=== PATIENT | male | born 1960 | race Caucasian/White ===

== ENCOUNTER 2020-04-02 11:59 | Emergency (ER) | payer OTHER, SELFPAY ==
[2020-04-02 12:10] VITALS: BP 132/81; PULSE 78; RESP 16; TEMP 37; O2SAT 98; BMI 27.2
--- NOTE | 2020-04-02 13:15 | ED.BACK ---
HPI - Back Pain/Injury General Chief Complaint: Back Pain/Injury Stated Complaint: back pain Time Seen by Provider: 04/02/20 13:15 History of Present Illness HPI Narrative: patient complains of pain in his lower back radiating down his left leg that is similar to pain he has had for a long time he has had recent steroid shots he has had previous back surgeries and this is an ongoing issue, there is no new injury no incontinence no new weakness, no changes to bowel or bladder Related Data Previous Rx's Medication Instructions Recorded cyclobenzaprine 10 mg PO TID PRN #10 tab 04/02/20 oxycodone-acetaminophen [Percocet] 1 tab PO Q6H PRN #14 tab 04/02/20 Allergies Allergy/AdvReac Type Severity Reaction Status Date / Time No Known Drug Allergies Allergy Unknown UNKNOWN Verified 04/02/20 12:17 Review of Systems Review of Systems: there is no weakness, no incontinence, there are paresthesias down the left leg, there is no chest pain no abdominal pain no nausea no vomiting no fever no chills no urinary complaints PMFSH Past Medical History Source: nursing notes reviewed Medical History (Updated 04/02/20 @ 13:24 by KINA Arshad) Back pain Back pain due to injury Social History Social History Alcohol intake: unknown Smoking Status: Unknown if ever smoked Use of substances other than those prescribed or required for medical reasons: Unknown Advance Directives: No Advance Directives Information Provided: No Physical Exam Vital Signs and I&O and Narrative: Vital Signs and I&O: Vital Signs Temp 98.6 F 04/02/20 12:10 Pulse 78 04/02/20 12:10 Resp 16 04/02/20 12:10 BP 132/81 04/02/20 12:10 Pulse Ox 98 04/02/20 12:10 Intake & Output 04/01/20 04/02/20 04/02/20 18:59 06:59 18:59 Weight 81.193 kg Body Mass Index 27.2 general appearance no acute distress, A&O x3 The neck is supple nontender respiratory there is no respiratory distress abdomen is soft and nontender the back had bilateral lower lumbar paraspinal soft tissue tenderness worse on the left side there is no bony tenderness, the skin is normal there is no redness no warmth no wounds Extremities no calf tenderness no edema Neuro and O x3 no motor deficits Discharge Plan Discharge Clinical Impression: Lumbar radiculopathy Patient Disposition: Home, Self-Care Additional Instructions: follow with primary physician and back specialist Return any time any worse condition or any concerns Prescriptions: New oxycodone-acetaminophen [Percocet] 5-325 mg tablet 1 tab PO Q6H PRN (Reason: pain) Qty: 14 RF: 0 cyclobenzaprine 10 mg tablet 10 mg PO TID PRN (Reason: muscle spasm) Qty: 10 RF: 0 Interventions: ED Discharge Assessment Last Done: 04/02/20 13:40 Discharge Date/Time: 04/02/20 13:41
== END 2020-04-02 13:41 | disposition home or self-care (01) ==
PROVIDERS: Emergency Provider Emergency Medicine; PCP Internal Medicine
DX: M54.16 Radiculopathy, lumbar region (principal)
CPT/HCPCS: 99283; 99284

== ENCOUNTER 2020-05-09 13:05 | Emergency (ER) | payer OTHER, SELFPAY ==
--- NOTE | 2020-05-09 14:28 | ED_ITS ---
HPI - Back Pain/Injury General Chief Complaint: Back Pain/Injury Stated Complaint: back pain Time Seen by Provider: 05/09/20 14:21 Source: patient Mode of arrival: ambulatory Limitations: no limitations History of Present Illness HPI Narrative: 60-year-old male here with acute on chronic low back pain. The patient tells me he has had this pain for months. The secondary to work injury. The pain is unrelieved with a recent steroid taper, Motrin, Tylenol and Flexeril at home. The pain radiates both of his legs. He has numbness and tingling which is secondary to neuropathy and is unchanged from previous. He takes gabapentin for this. No saddle anesthesia. No numbness or tingling. The patient is ambulatory with his cane. He is waiting for approval for an MRI. MD elicited complaint: back pain Pertinent past history: prior back pain Onset (ago): month(s) Timing: constant Severity: mild Similar Symptoms Previously: No Location: lumbar spine Radiation: none Exacerbating factors: none Relieving factors: none Associated symptoms: denies other symptoms Work related injury: Yes Related Data Previous Rx's Medication Instructions Recorded cyclobenzaprine 10 mg PO TID PRN #10 tab 04/02/20 oxycodone-acetaminophen [Percocet] 1 tab PO Q6H PRN #14 tab 04/02/20 lidocaine [Lidoderm] 1 patch TOPICAL DAILY #15 ea 05/09/20 tramadol 50 mg PO Q8H PRN #10 tab 05/09/20 Allergies Allergy/AdvReac Type Severity Reaction Status Date / Time No Known Drug Allergies Allergy Unknown UNKNOWN Verified 04/02/20 12:17 Review of Systems Review of Systems: Yes all other systems are reviewed and are negative Constitutional: Constitutional: Reports no additional constitutional complaints, Denies body ache(s), Denies chills, Denies fever(s), Denies head ache(s) and Denies weakness Eyes: Eyes: Reports no additional eye complaints and Denies change in vision ENT: Reports system reviewed and no additional complaints, except as documented, Reports dizziness, Denies headache(s), Denies nasal congestion, Denies nasal discharge and Denies neck pain Cardiovascular: Cardiovascular: Reports no additional cardiovascular complaints, Denies chest pain, Denies leg edema and Denies dyspnea Respiratory: Respiratory: Reports no additional respiratory complaints, Denies cough and Denies dyspnea Gastrointestinal: Gastrointestinal: Reports no additional gastrointestinal complaints, Denies abdominal pain, Denies diarrhea, Denies nausea and Denies vomiting Genitourinary: Genitourinary: Denies urinary incontinence Musculoskeletal: Musculoskeletal: Reports no additional musculoskeletal complaints, Denies back pain, Denies arthralgias, Denies joint swelling, Denies neck pain, Denies numbness and Denies tingling Integumentary/Breasts: Skin/Breast: Reports system reviewed and no additional complaints, except as docu and Denies rash Neurologic: Reports system reviewed and no additional complaints, except as documented, Denies Abnormal speech present, Reports dizziness, Denies headache(s), Denies numbness, Denies tingling and Denies weakness PMFSH Past Medical History Attestation statement: The following information was validated with the patient. Source: obtained from family and nursing notes reviewed Medical History Back pain Back pain due to injury Social History Social History Alcohol intake: current Smoking Status: Current every day smoker Use of substances other than those prescribed or required for medical reasons: Yes Substance Use Type: Heroin Advance Directives: No Advance Directives Information Provided: Yes Physical Exam Vital Signs: Vital Signs: Last Vital Signs Temp 98.0 F 05/09/20 14:31 Pulse 81 05/09/20 15:38 Resp 98 H 05/09/20 15:38 BP 127/85 05/09/20 15:38 Pulse Ox 98 05/09/20 15:38 Body Mass Index 26.6 Const: General: cooperative, healthy appearing, comfortable and no acute distress Orientation/consciousness: patient oriented x3 Limitations: no limitations HENMT: Head: Yes normal to inspection Ears: hearing grossly normal bilaterally General nose exam: Normal external nose present Face and sinus: Yes normal facial exam Mouth: Normal oral and palatal mucosa present Throat: Yes posterior oropharynx normal Eyes: General: appearance normal, both eyes and all related structures Pupils: Equal, round and reactive pupils present Neck: Neck: Yes normal visual inspection Chest: Chest palpation & inspection: normal inspection of the chest Resp: Effort & Inspection: normal respiratory effort Auscultation: clear to auscultation bilaterally Cardio: Rate: regular rate Rhythm: regular rhythm Peripheral pulses: Peripheral pulses 2+ throughout GI: Inspection: Yes normal to inspection Palpation (GI): Soft to palpation and nontender Auscultation: normal bowel sounds : General: Yes no CVA tenderness Back/Spine/Pelvis: Back: no CVA tenderness Cervical Spine: normal cervical lordosis and cervical ROM normal Thoracic/Lumbar Spine: thoracic and lumbar spine normal to inspection, paraspinal muscle tenderness ( bilateral lumbar), lumbar spinal tenderness ( moderate tenderness. No step-offs or deformities) and straight leg raise positive ( Bilateral) Skin: General skin exam: no rashes or lesions noted Neuro: General: patient oriented x3, no focal motor deficits and normal sensation to monofilament Cranial nerves: Yes Equal, round and reactive pupils present Cognition (Neuro): normal cognition Speech: No Abnormal speech present Gait exam (Neuro): Normal gait present Motor exam (neuro): 5/5 motor strength present throughout Extrem: General: Yes normal to inspection Course Course Course Narrative: Back pain unrelieved with home meds. No neuro deficits. No red flag symptoms. Patient was medicated with Toradol in the ED with some improvement. Plan for discharge home with additional medications. Follow up with his primary and occupational health doctor for MRI outpatient. Reviewed worrisome signs and symptoms and when to return to the emergency department. Comfortable discharge home. Discharge Plan Discharge Clinical Impression: Strain of lumbar region Patient Disposition: Home, Self-Care Instructions: Low Back Strain (ED) Additional Instructions: heat or ice to the area Gentle stretching Continue to follow-up with her doctor as he likely will need outpatient MRI. Continue your Flexeril, Motrin, Tylenol at home Prescriptions: New lidocaine [Lidoderm] 5 % adhesive patch,medicated 1 patch topical DAILY Qty: 15 RF: 0 tramadol 50 mg tablet 50 mg PO Q8H PRN (Reason: pain) Qty: 10 RF: 0 No Action oxycodone-acetaminophen [Percocet] 5-325 mg tablet 1 tab PO Q6H PRN (Reason: pain) Qty: 14 RF: 0 cyclobenzaprine 10 mg tablet 10 mg PO TID PRN (Reason: muscle spasm) Qty: 10 RF: 0 Referrals: Cuong Barnes MD [Primary Care Provider] - 2 days Interventions: ED Discharge Assessment Last Done: 05/09/20 15:39 Discharge Date/Time: 05/09/20 15:40
[2020-05-09 14:31] VITALS: BP 114/80; PULSE 85; RESP 18; TEMP 36.7; O2SAT 97; BMI 26.6
[2020-05-09] MEDS: Ketorolac Tromethamine 60 MG/2 ML VIAL IM (14:43)
--- NOTE | 2020-05-09 14:44 | PC.NURSE ---
MEDICATED FOR LOWER BACK PAIN. PT [facility]. USING CANE WHICH IS BASELINE.
[2020-05-09 15:38] VITALS: BP 127/85; PULSE 81; RESP 98; O2SAT 98
== END 2020-05-09 15:40 | disposition home or self-care (01) ==
PROVIDERS: Emergency Provider Emergency Medicine; PCP Internal Medicine
DX: S39.012A Strain of muscle, fascia and tendon of lower back, initial encounter (principal); M79.605 Pain in left leg; M79.604 Pain in right leg; F17.200 Nicotine dependence, unspecified, uncomplicated; F11.90 Opioid use, unspecified, uncomplicated; X58.XXXA Exposure to other specified factors, initial encounter; Y93.9 Activity, unspecified; Y92.9 Unspecified place or not applicable; Y99.9 Unspecified external cause status; Z79.899 Other long term (current) drug therapy; Z71.6 Tobacco abuse counseling
CPT/HCPCS: 96372; 99283; 99284; J1885

== ENCOUNTER 2020-05-30 13:50 | Outpatient (REF) | payer OTHER, SELFPAY | END 2020-05-30 13:51 | disposition home or self-care (01) | LOC: HO.LAB 13:50 | PROVIDERS: Visit Provider Internal Medicine | DX: Z20.828 Contact with and (suspected) exposure to other viral communicable diseases (principal) | CPT/HCPCS: C9803; U0003 ==

== ENCOUNTER 2020-10-19 14:21 | Emergency (ER) | payer OTHER, SELFPAY ==
--- NOTE | ~2020-10-19 | XR_ITS ---
EXAMINATION: XR KNEE, LEFT CLINICAL INFORMATION: Left knee pain COMPARISON: None TECHNIQUE: Four views of the left knee. FINDINGS: No fracture or dislocation. There is a moderate to large suprapatellar joint effusion. Moderately decreased medial joint space height. Lateral joint space height is relatively maintained. Tricompartmental marginal osteophytes noted. Stenosis appreciated. XR/XR knee LT 4V IMPRESSION: Moderate to large joint effusion with moderate diffuse degenerative changes of the knee.
[2020-10-19 14:26] VITALS: BP 160/85; PULSE 87; RESP 18; TEMP 36.8; O2SAT 97; BMI 27.3
[2020-10-19 16:34] VITALS: BP 183/94; PULSE 77; RESP 18; O2SAT 97
[2020-10-19] MEDS: Ketorolac Tromethamine 60 MG/2 ML VIAL IM (16:57)
--- NOTE | 2020-10-19 17:51 | ED_ITS ---
HPI - Extremity Injury (Lower) General Chief Complaint: Extremity Injury, Lower Stated Complaint: left knee pain Source: patient Mode of arrival: ambulatory Limitations: no limitations History of Present Illness HPI Narrative: Patient presents to ED for left knee pain. Patient states history of left knee meniscus 20 years ago. Patient states yesterday he was stepping out of his car and he put his foot down and turned his left knee and all the signing heard a pop in his left knee since then has had pain. Patient denies any blunt trauma to the knee, redness, fever, chills, or fall to the ground. Related Data Previous Rx's Medication Instructions Recorded cyclobenzaprine 10 mg PO TID PRN #10 tab 04/02/20 oxycodone-acetaminophen [Percocet] 1 tab PO Q6H PRN #14 tab 04/02/20 lidocaine [Lidoderm] 1 patch TOPICAL DAILY #15 ea 05/09/20 tramadol 50 mg PO Q8H PRN #10 tab 05/09/20 naproxen 500 mg PO BID PRN #20 tab 10/19/20 oxycodone-acetaminophen [Percocet] 1 tab PO TID PRN #9 tab 10/19/20 Allergies Allergy/AdvReac Type Severity Reaction Status Date / Time No Known Drug Allergies Allergy Unknown UNKNOWN Verified 04/02/20 12:17 Review of Systems Review of Systems: Yes all other systems are reviewed and are negative Constitutional: Constitutional: Reports as per HPI and Reports no additional c onstitutional complaints Eyes: Eyes: Reports as per HPI and Reports no additional eye complaints ENT: Reports system reviewed and no additional complaints, except as documented and Reports as per HPI Cardiovascular: Cardiovascular: Reports as per HPI and Reports no additional cardiovascular complaints Respiratory: Respiratory: Reports as per HPI and Reports no additional respiratory complaints Gastrointestinal: Gastrointestinal: Reports as per HPI and Reports no additional gastrointestinal complaints Genitourinary: Genitourinary: Reports no additional male genitourinary complaints and Reports as per HPI Musculoskeletal: Musculoskeletal: Reports no additional musculoskeletal complaints, Reports as per HPI and Reports arthralgias (Knee pain) Neurologic: Reports system reviewed and no additional complaints, except as documented and Reports as per HPI PMFSH Past Medical History Medical History Back pain Back pain due to injury Social History Social History Alcohol intake: current Smoking Status: Current every day smoker Substance Use Type: Heroin Advance Directives: No Advance Directives Information Provided: Yes Physical Exam Vital Signs: Vital Signs: Last Vital Signs Temp 98.2 F 10/19/20 14:26 Pulse 77 10/19/20 16:34 Resp 18 10/19/20 16:34 BP 183/94 H 10/19/20 16:34 Pulse Ox 97 10/19/20 16:34 Body Mass Index 27.3 Const: General: cooperative, healthy appearing, comfortable, no acute distress, well developed, alert, awake and Physically active Orientation/consciousness: patient oriented x3 HENMT: Head: Yes normal to inspection, Yes No palpable skull fracture present, Yes normocephalic and Yes atraumatic Eyes: General: appearance normal, both eyes and all related structures Neck: Neck: Yes normal visual inspection, Yes full ROM, Yes no lymphadenopathy, Yes no meningeal signs, Yes trachea midline, Yes supple and No tender Chest: Chest palpation & inspection: normal inspection of the chest and normal palpation of entire chest wall Resp: Effort & Inspection: normal respiratory effort and able to speak in complete sentences Auscultation: clear to auscultation bilaterally Cardio: Jugular venous distension: no JVD Heart sounds: S1 normal heart sound present and S2 normal heart sound present GI: Inspection: Yes normal to inspection and No abdominal wall ecchymosis Palpation (GI): Soft to palpation, not firm, nontender, no guarding and not rigid : General: No CVA tenderness and Yes no CVA tenderness Back/Spine/Pelvis: Back: no CVA tenderness, No CVA tenderness and No back tenderness Skin: General skin exam: no rashes or lesions noted and elasticity normal Neuro: General: patient oriented x3, gait normal (Ambulate with can naturally), no meningeal signs and CN's II-XI intact bilaterally Cranial nerves: Yes CN's II-XII intact bilaterally Extrem: Other: Left lower extremity: Positive for left knee medial meniscus tenderness on palpation. Swelling of the knee, but negative for any erythema or warmth of the knee. Rest of left lower extremity negative for swelling, tenderness, or ecchymosis. Pulses/neuro/motor exam of left lower extremity intact. Rest of body normal. General: Yes normal to inspection and Yes full ROM Psych: Appearance: grossly normal, well kempt and not disheveled Course Course Course Narrative: Patient will have left knee xray ordered. Reevaluation(s) Reevaluation #1: Left knee shows joint effusion most likely caused by another meniscus tear. No need for arthrocentesis. Knee is not warm or red. Not suspecting gout or septic joint. Patient be placed in Con wrap and informed to follow-up with orthopedics. Patient will be given narcotic before discharge MDM - Extremity Injury (Lower) MDM Narrative Medical decision making narrative: Left knee sprain. Left knee effusion. Meniscus tear. Discharge Plan Discharge Clinical Impression: Knee sprain Patient Disposition: Home, Self-Care Instructions: Knee Sprain (ED), Osteoarthritis (ED), Swollen Knee Joint (ED) Additional Instructions: Return to the ED for worsening knee pain, increased swelling of knee, redness, warmth, inability to ambulate, inability to bend knee, or any other concerning symptoms. Recommended repeat MRI with PCP or orthopedic to evaluate for possible new left meniscus tear. Prescriptions: New oxycodone-acetaminophen [Percocet] 5-325 mg tablet 1 tab PO TID PRN (Reason: pain) Qty: 9 RF: 0 naproxen 500 mg tablet 500 mg PO BID PRN (Reason: pain) Qty: 20 RF: 0 No Action oxycodone-acetaminophen [Percocet] 5-325 mg tablet 1 tab PO Q6H PRN (Reason: pain) Qty: 14 RF: 0 cyclobenzaprine 10 mg tablet 10 mg PO TID PRN (Reason: muscle spasm) Qty: 10 RF: 0 lidocaine [Lidoderm] 5 % adhesive patch,medicated 1 patch topical DAILY Qty: 15 RF: 0 tramadol 50 mg tablet 50 mg PO Q8H PRN (Reason: pain) Qty: 10 RF: 0 Referrals: Cuong Barnes MD [Primary Care Provider] - 2 days (Need MRI for evaluation of meniscus tear.) Sotero Norris MD [Physician] - 2 days (Knee effusion after turning of knee. History of meniscus tear. May need MRI to re-evaluate for possible new meniscus tear.) Print Language: Beninese
[2020-10-19] MEDS: oxyCODONE HCl Immed Release 5 MG TABLET PO (18:04)
== END 2020-10-19 19:00 | disposition home or self-care (01) ==
PROVIDERS: Emergency Provider Internal Medicine; PCP Internal Medicine
DX: S83.92XA Sprain of unspecified site of left knee, initial encounter (principal); M25.562 Pain in left knee; M17.12 Unilateral primary osteoarthritis, left knee; F11.90 Opioid use, unspecified, uncomplicated; X58.XXXA Exposure to other specified factors, initial encounter; Y93.9 Activity, unspecified; Y92.9 Unspecified place or not applicable; Y99.9 Unspecified external cause status; Z79.899 Other long term (current) drug therapy
CPT/HCPCS: 73564; 96372; 99284; J1885

== ENCOUNTER → 2020-10-24 11:31 | Outpatient (BNVA) | payer OTHER, SELFPAY | PROVIDERS: PCP Internal Medicine; Visit Provider Physician Assistant | DX: M17.12 Unilateral primary osteoarthritis, left knee (principal); M25.462 Effusion, left knee | CPT/HCPCS: 20605; 20610; 99202; J1040 ==

== ENCOUNTER 2020-12-22 14:00 | Outpatient (RCR) | payer OTHER, SELFPAY ==
[2020-11-04 14:44] VITALS: BP 130/80
--- NOTE | 2020-11-04 15:42 | MHC.PT.EP ---
[facility] [place] [facility] [place] Office [place] Office [address] Lizzie [place] [address] [phone] F: [phone] F: [phone] F: [phone] F: [phone] Physical Therapy Plan of Care Date of Evaluation: Date of Surgery: NA Diagnosis: OA of L knee, Effusion of L knee, unilateral primary OA of L knee Assessment: 60 year old male referred for PT for unilateral primary OA of L knee . Pt had sudden onset of knee pain about 2 weeks back following a twisting injury while getting out of the car. Examination reveals TTP along medial and lateral joint line, around patella, 8/10 pain in the knee with standing, walking, stairs, fabrication and assembly supervisor and night, decreased knee ROM, swelling in suprapatellar region, decreased muscle strength, altered posture, balance and gait. He would benefit from skilled PT to address to aforementioned impairments to increase tolerance to sitting, standing, walking, stairs, sleeping and ADLS. He is motivated to return to PLOF. Frequency and Duration: The patient will be seen 2/week for 6 weeks Short Term Goals: 1. Pt will have 50% decrease in pain which will enable him to sleep through the night in 2 weeks. 2. Pt will be able to move knee through full plane of motion without pain which will help him with stair negotiation in 3 weeks. Half-Way Goals: 1. Pt will demonstrate an increase in muscle strength by 1 grade in which will enable him to walk and stand with a pain no more than 2/10 in 4 weeks 2. Pt will be independent with all HEPs for symptom management and maintenance following d/c in 5 weeks. 3. Pt will be independent with all BADLS and return to PLOF in 6 weeks. Treatment Plan: Modalities to reduce pain, spasms and effusion. Manual therapy to restore motion and function. Therapeutic exercise to improve strength and flexibility. Neuromuscular re-education for posture and balance. Therapeutic activities to return to functional activities of daily living. Electronically signed by: Araseli Ledezma, PT, DPT Please sign and return to therapist. Thank you for your referral.
--- NOTE | 2021-01-20 14:41 | MHC.PT.DC ---
[facility] [place] [facility] [place] Office [place] Office [address] [phone] F: [phone] F: [phone] F: [phone] F: [phone] Physical Therapy Discharge Report Diagnosis: OA of L knee, Effusion of L knee, unilateral primary OA of L knee Date of Surgery: NA Date of Evaluation: 11/04/20 Date of Discharge: 01/20/21 Treatments to Date: 11 Cancellations to Date: 1 No Shows to Date: 1 Discharge Status: Achieved Goals Improved Function Independent with HEP Discharge Summary: Olivier has made significant improvements and achieved all goals set for him. He has therefore been d/c from therapy. Electronically signed by: Araseli Ledezma PT DPT Please sign and return to therapist. Thank you for your referral.
== END 2021-01-20 14:40 | disposition home or self-care (01) ==
LOC: HO.PT 14:00
PROVIDERS: PCP Internal Medicine; Visit Provider Physician Assistant
DX: M25.462 Effusion, left knee (principal); M17.12 Unilateral primary osteoarthritis, left knee
CPT/HCPCS: 97110; 97112; 97161; 97530

== ENCOUNTER 2021-12-07 15:43 | Emergency (ER) | payer OTHER, SELFPAY ==
[2021-12-07 15:52] VITALS: BP 146/83; PULSE 98; RESP 18; TEMP 36.6; O2SAT 98; BMI 24.3
--- NOTE | 2021-12-07 16:52 | ED_ITS ---
HPI - Back Pain/Injury General Chief Complaint: Back Pain/Injury Stated Complaint: lower back pain Time Seen by Provider: 12/07/21 16:49 Source: patient Mode of arrival: ambulatory Limitations: no limitations History of Present Illness HPI Narrative: 61-year-old male presents for acute on chronic back pain. Pain started yesterday, when he sneezed hard. It is worse today and is severe. It is more on his right side than left, mid back, stabbing pain. Pain radiates down his legs, right side more than left . He took meloxicam 15 mg at 09:00 this morning. Patient states he had an MRI one month ago at another facility that showed he has a herniated disc in his lumbar spine Patient had a back injury from work in 2019. He has L4-L5 fusion with hardware. He used to see Dr. Chopra at [facility] for his spine doctor. He has also has a history of steroid injections in his spine. No fevers, no history of IV drug use, no leg weakness, no saddle paresthesias, no urinary retention, no incontinence of bowel or bladder, no personal history of cancer MD elicited complaint: back pain Pertinent past history: prior back pain Onset (ago): day(s) (1) Timing: constant Severity: severe Similar Symptoms Previously: Yes Quality: stabbing Location: lumbar spine Radiation: right upper leg Exacerbating factors: movement Relieving factors: none Context: other ( CC) Associated symptoms: denies other symptoms Related Data Previous Rx's Medication Instructions Recorded cyclobenzaprine 10 mg tablet 10 mg PO TID PRN muscle spasm #10 04/02/20 tabs oxycodone-acetaminophen 5 mg-325 1 tab PO Q6H PRN pain #14 tabs 04/02/20 mg tablet (Percocet) lidocaine 5 % topical patch 1 patch topical DAILY #15 ea 05/09/20 (Lidoderm) tramadol 50 mg tablet 50 mg PO Q8H PRN pain #10 tabs 05/09/20 naproxen 500 mg tablet 500 mg PO BID PRN pain #20 tabs 10/19/20 oxycodone-acetaminophen 5 mg-325 1 tab PO TID PRN pain #9 tabs 10/19/20 mg tablet (Percocet) celecoxib 200 mg capsule (Celebrex) 200 mg PO BID 30 days #60 caps 10/24/20 cyclobenzaprine 5 mg tablet 5 mg PO TID 5 days #15 tabs 12/07/21 ketorolac 10 mg tablet 10 mg PO Q6H 5 days #20 tabs 12/07/21 Allergies Allergy/AdvReac Type Severity Reaction Status Date / Time No Known Drug Allergies Allergy Unknown UNKNOWN Verified 04/02/20 12:17 Review of Systems Constitutional: Constitutional: Denies body ache(s), Denies chills, Denies fatigue, Denies fever(s), Denies headache(s), Denies malaise and Denies weakness Eyes: Eyes: Denies diplopia ENT: Denies headache(s) and Denies disequilibrium Cardiovascular: Cardiovascular: Denies chest pain, Denies syncope, Denies leg edema, Denies lightheadedness, Denies Loss of Consciousness, Denies palpitations and Denies dyspnea Respiratory: Respiratory: Denies chest congestion, Denies cough and Denies dyspnea Gastrointestinal: Gastrointestinal: Denies abdominal pain, Denies hematochezia, Denies constipation, Denies fecal incontinence, Denies diarrhea and Denies vomiting Genitourinary: Genitourinary: Denies urinary hesitancy and Denies urinary incontinence Musculoskeletal: Musculoskeletal: Reports back pain, Denies numbness and Denies tingling Integumentary/Breasts: Skin/Breast: Denies rash Neurologic: Denies confusion, Denies syncope, Denies headache(s), Denies lack of coordination, Denies focal weakness, Denies numbness, Denies Sensory deficit (Neuro), Denies tingling, Denies paresthesias, Denies disequilibrium and Denies weakness Psychiatric: Psychiatric: Denies anxiety, Denies confusion and Denies depression Endocrine: Endocrine: Denies fatigue and Denies palpitations PMF Past Medical History Medical History Back pain Back pain due to injury Surgical History History of lumbar surgery Hx of appendectomy Social History Social History Alcohol intake: current Substance Use Type: Heroin Advance Directives: No Advance Directives Information Provided: No Physical Exam Vital Signs: Vital Signs: Last Vital Signs Temp 98 F 12/07/21 15:52 Pulse 98 12/07/21 15:52 Resp 18 12/07/21 15:52 BP 146/83 H 12/07/21 15:52 Pulse Ox 98 12/07/21 15:52 O2 Del Method 12/07/21 15:52 BMI result Body Mass Index 24.3 Const: General: No confusion Nutritional Appearance: well nourished Orientation/consciousness: No confusion Limitations: no limitations Eyes: Conjunctivae: conjunctivae normal Pupils: Equal, round and reactive pupils present EOM: EOMs intact bilaterally Neck: Neck: Yes full ROM, Yes no lymphadenopathy and Yes supple Resp: Effort & Inspection: normal respiratory effort and able to speak in complete sentences Auscultation: clear to auscultation bilaterally, no crackles, no rales, no rhonchi and no wheezes Cardio: Rate: regular rate Rhythm: regular rhythm Heart sounds: S1 normal heart sound present and S2 normal heart sound present GI: Inspection: Yes normal to inspection Palpation (GI): Soft to palpation, nontender, no guarding and not rigid Percussion: Yes normal to percussion Auscultation: normal bowel sounds : General: Yes CVA tenderness and Yes no CVA tenderness Back/Spine/Pelvis: Back: no CVA tenderness and CVA tenderness Cervical Spine: normal cervical lordosis, cervical ROM normal, No cervical muscular tenderness, No Cervical spine tenderness, No step off deformity and No cervical ROM abnormal Thoracic/Lumbar Spine: paraspinal muscle tenderness on the right in the lower thoracic and in the upper lumbar, thoraco-lumbar ROM limited with forward flexion, with lateral flexion to the right, with lateral flexion to the left, with rotation to the right and with rotation to the left, thoraco-lumbar spasm on the right in the lower thoracic and in the upper lumbar, No thoracic spinal tenderness, No lumbar spinal tenderness and No straight leg raise positive Skin: General skin exam: no rashes or lesions noted Neuro: General: No confusion Cranial nerves: Yes Equal, round and reactive pupils present Sensory Exam: No Sensory deficit (Neuro) Extrem: General: Yes normal to inspection and Yes full ROM Psych: Appearance: grossly normal Affect: normal affect Attitude: cooperative Thought process: Normal thought process present Course Course Course Narrative: 7-year-old male with acute on chronic back pain for 1 day. No red flag symptoms, patient has stable vitals. Patient has bilateral negative straight leg raise, has intact bilateral lower extremity pulses, sensation, motor strength, and deep tendon reflexes. Patient has a stiff gait due to pain. Patient has a palpable muscle spasm in his lower thoracic upper lumbar right paraspinous muscle. Will treat with ketorolac and Flexeril. Patient states he does not like to have prednisone as he is diabetic and it makes her sugars go high. Patient states he has no more meloxicam, does have Celebrex at home, is prescribed naproxen but is not taking that now Discharge Plan Discharge Clinical Impression: Strain of lumbar region Patient Disposition: Home, Self-Care Instructions: Acute Low Back Pain (ED) Additional Instructions: please call [facility] at the following number [phone] I would like you to be seen for evaluation of your chronic back pain I am prescribing ketorolac to your pharmacy, please do not use any other medicine in this same class of medicines. In other words, do not use any ibuprofen, Celebrex, naproxen, meloxicam, Motrin, Aleve, Excedrin. Please only use ketorolac and the cyclobenzaprine if you have sudden leg weakness, if you are incontinent of bowel or bladder, if you cannot empty her bladder, if you have fevers, if you have numbness or tingling in your groin, please return to emergency room to be seen Prescriptions: New ketorolac 10 mg tablet 10 mg PO Q6H 5 Days Qty: 20 0RF cyclobenzaprine 5 mg tablet 5 mg PO TID 5 Days Qty: 15 0RF No Action oxycodone-acetaminophen [Percocet] 5-325 mg tablet 1 tab PO Q6H PRN (Reason: pain) Qty: 14 0RF cyclobenzaprine 10 mg tablet 10 mg PO TID PRN (Reason: muscle spasm) Qty: 10 0RF lidocaine [Lidoderm] 5 % adhesive patch,medicated 1 patch topical DAILY Qty: 15 0RF Rx Instructions: leave on most painful area for up to 12 hrs tramadol 50 mg tablet 50 mg PO Q8H PRN (Reason: pain) Qty: 10 0RF oxycodone-acetaminophen [Percocet] 5-325 mg tablet 1 tab PO TID PRN (Reason: pain) Qty: 9 0RF naproxen 500 mg tablet 500 mg PO BID PRN (Reason: pain) Qty: 20 0RF celecoxib [Celebrex] 200 mg capsule 200 mg PO BID 30 Days Qty: 60 0RF
[2021-12-07] MEDS: Ketorolac Tromethamine 15 MG/ML VIAL IM (18:04)
[2021-12-07] MEDS: Cyclobenzaprine HCl 10 MG TABLET PO (18:05)
[2021-12-07] MEDS: oxyCODONE HCl Immed Release 5 MG TABLET PO (18:05)
== END 2021-12-07 18:52 | disposition home or self-care (01) ==
PROVIDERS: Emergency Provider Emergency Medicine; PCP Internal Medicine
DX: S39.012A Strain of muscle, fascia and tendon of lower back, initial encounter (principal); X50.9XXA Other and unspecified overexertion or strenuous movements or postures, initial encounter; Y93.9 Activity, unspecified; Y92.019 Unspecified place in single-family (private) house as the place of occurrence of the external cause; Y99.9 Unspecified external cause status
CPT/HCPCS: 96372; 99283; 99284; J1885

== ENCOUNTER 2021-12-13 11:15 | Emergency (ER) | payer OTHER, SELFPAY ==
[2021-12-13 11:46] VITALS: BP 156/102; PULSE 93; RESP 18; TEMP 36.1; O2SAT 98; BMI 24.3
[2021-12-13 12:17] LABS: Basophils Percent Auto 0.3 % (0-2); Eosinophils Absolute Auto 0.2 X10*3/uL (0.0-0.4); Eosinophils Percent Auto 1.6 % (0-4); Hematocrit 34.1 % (42.0-52.0); Hemoglobin 11.4 g/dl (14.0-18.0); Imm Gran Abs Auto 0.05 X10*3/uL (0.00-0.03); Imm Gran Pct Auto 0.4 % (0.0-0.4); Lymphocytes Absolute Auto 1.7 X10*3/uL (1.2-4.9); Lymphocytes Percent Auto 13.3 % (20-40); MANUAL DIFF FLAG NO; Mean Corpuscular HGB Conc 33.4 g/dl (31.0-36.0); Mean Corpuscular Hemoglobin 29.7 pg (27.0-33.0); Mean Corpuscular Volume 88.8 fL (80.0-98.0); Mean Platelet Volume 9.6 fL (9.4-12.4); Monocytes Absolute Auto 0.7 X10*3/uL (0.1-1.2); Monocytes Percent Auto 5.7 % (2-11); Neutrophils Absolute Auto 10.1 x10*3/uL (2.0-8.3); Neutrophils Percent Auto 78.7 % (45-73); Platelet Count 280 X10*3/uL (160-400); Red Blood Count 3.84 X10*6/uL (4.60-5.80); Red Cell Distribution Width 13.7 % (11.0-16.0); White Blood Count 12.9 X10*3/uL (4.8-10.8)
[2021-12-13 12:18] LABS: Appearance Urine CLEAR; Color Urine YELLOW; Glucose Urine UA 100 MG/DL (NEG); Leukocyte Esterase Urine NEG (NEG); Nitrite Urine NEG (NEG); Specific Gravity - Urine 1.015 (1.005-1.025); UACC Culture Trigger NO; Urine Blood NEG (NEG); Urine Ketones NEG (NEG); Urine Protein 1+ MG/DL (NEG-TRACE)
[2021-12-13 12:24] LABS: RBC Urine 0-2 /HPF (0); Squamous Epithelial Cell Urine TRACE /LPF; WBC Urine 0-2 /HPF (0-4)
[2021-12-13 12:36] LABS: Alanine Aminotransferase 10 U/L (0-40); Albumin Level 4.6 g/dL (3.5-5.0); Alkaline Phosphatase 91 U/L (39-117); Anion Gap 13 (12-20); Aspartate Amino Transferase 12 U/L (5-37); Bilirubin Direct 0.2 mg/dL (0.0-0.5); Bilirubin Total 0.5 mg/dL (0.0-1.0); Blood Urea Nitrogen 14 mg/dL (9-16); Calcium 9.2 mg/dL (8.4-10.2); Carbon Dioxide 29 mmol/L (22-29); Chloride 102 mmol/L (96-108); Creatinine Clr Calc Pharmacy 79.1; Estimated Glomerular Filt Rate > 60; Glucose Random 157 mg/dL (60-115); Lipase 14 U/L (8-78); Potassium 3.9 mmol/L (3.3-5.1); Sodium 140 mmol/L (135-145); Total Protein 7.5 g/dL (6.5-8.0)
[2021-12-13 15:16] VITALS: BP 179/100; PULSE 85; RESP 18; TEMP 37.1; O2SAT 100
--- NOTE | 2021-12-13 15:48 | ED.ABDPAIN ---
HPI - Abdominal Pain General Chief Complaint: Abdominal Pain Stated Complaint: abd pain Time Seen by Provider: 12/13/21 15:23 Source: patient Mode of arrival: ambulatory Limitations: no limitations History of Present Illness HPI narrative: 61 y/o male presents to the ER with epigastric abdominal pain and chills that started yesterday. He states the pain started yesterday morning, is located in his epigastric area and stabbing. It does not radiate. It is worse when he tries to eat. He is not nausated or vomiting. No diarrhea, fever or chills. He states he was told he had an ulcer years ago and that this feels similar. He is on chronic meloxicam for his arthritis. No ETOH. No signs or symptoms of GI bleed. MD elicited complaint: abdominal pain Pertinent past history: none Onset (ago): day(s) (1) Location: epigastric Severity: moderate Pain scale (0-10): 6 Quality: stabbing Radiation: none Migration to: no migration Exacerbating factors: eating Relieving factors: nothing Context: history of similar episodes Associated symptoms: denies other symptoms Related Data Previous Rx's Medication Instructions Recorded cyclobenzaprine 10 mg tablet 10 mg PO TID PRN muscle spasm #10 04/02/20 tabs oxycodone-acetaminophen 5 mg-325 1 tab PO Q6H PRN pain #14 tabs 04/02/20 mg tablet (Percocet) lidocaine 5 % topical patch 1 patch topical DAILY #15 ea 05/09/20 (Lidoderm) tramadol 50 mg tablet 50 mg PO Q8H PRN pain #10 tabs 05/09/20 naproxen 500 mg tablet 500 mg PO BID PRN pain #20 tabs 10/19/20 oxycodone-acetaminophen 5 mg-325 1 tab PO TID PRN pain #9 tabs 10/19/20 mg tablet (Percocet) celecoxib 200 mg capsule (Celebrex) 200 mg PO BID 30 days #60 caps 10/24/20 cyclobenzaprine 5 mg tablet 5 mg PO TID 5 days #15 tabs 12/07/21 ketorolac 10 mg tablet 10 mg PO Q6H 5 days #20 tabs 12/07/21 pantoprazole 40 mg tablet,delayed 40 mg PO DAILY #30 tabs 12/13/21 release (Protonix) Allergies Allergy/AdvReac Type Severity Reaction Status Date / Time No Known Drug Allergies Allergy Unknown UNKNOWN Verified 04/02/20 12:17 Review of Systems Review of Systems Constitutional: No Fever, No Chills ENT/Mouth: No sore throat, No Rhinorrhea, No Swallowing Difficulty Cardiovascular: No Chest Pain, No SOB Respiratory: No Cough, No Sputum, No Wheezing, No dyspnea Gastrointestinal: No Nausea, No Vomiting, No Diarrhea, +abdominal Pain, No melena Genitourinary: No Dysuria, No Urinary Frequency, No Hematuria Musculoskeletal: No joint pain, No Myalgias Skin: No Skin Lesions, No rash Neuro: No Weakness, No Numbness, No Dizziness, No Headache Psych: No Anxiety/Panic, No Depression Heme/Lymph: No Bruising, No Lymphadenopathy PMFSH Past Medical History Medical History Back pain Back pain due to injury Surgical History History of lumbar surgery Hx of appendectomy Social History Social History Alcohol intake: current Alcohol intake frequency: does not drink Patient Tobacco Use Status: Current someday Tobacco user Smoked in Last 30 Days: Yes Use of substances other than those prescribed or required for medical reasons: No Substance Use Type: Heroin Advance Directives: No Advance Directives Information Provided: No Physical Exam ED Vital Signs: Vital Signs - 24 hr 12/13/21 11:46 12/13/21 15:16 12/13/21 15:59 Temperature 97 F 98.7 F 99.1 F Pulse Rate 93 85 89 Respiratory Rate 18 18 20 Blood Pressure 156/102 H 179/100 H 169/101 H Pulse Oximetry 98 100 100 Oxygen Delivery Method Room Air Room Air BMI result Body Mass Index 24.3 Appearance: Alert. Oriented X3. No acute distress. Eyes: Pupils equal, round and reactive to light. ENT: Pharynx normal. Neck: Normal inspection. Neck supple. CVS: Normal heart rate and rhythm. Pulses normal. Respiratory: No respiratory distress. Breath sounds normal. Abdomen: Soft with mild epigastric tenderness, no rebound or guarding. No RUQ tenderness, normal +BS x4 Skin: Skin warm and dry. Normal skin color. Normal skin turgor. No rashes. Extremities: No lower extremity edema. Neuro: Oriented X 3. No motor deficit. No sensory deficit. Course Course Course Narrative: 61 yo male with history of DM, HTN, osteoarthritis on NSAIDS who presents to the ER with epigastric pain since yesterday, worse with food. Labs show mild leukocytosis, WBC 12.9. LFT's and lipase are normal. Clinical presentation and exam are consistent with PUD vs gastritis. No melena or evidence of GI bleed. Will give GI cocktail and reassess. Reevaluation(s) Reevaluation #1: Patient feeling better after GI cocktail. Will plan to d/c with PPI, dietary modifications and GI referral if pain persists. Patient agrees with plan. MDM - Abdominal Pain Lab Data Result diagrams: 12/13/21 12:08 12/13/21 12:08 Labs: Lab Results 12/13/21 12/13/21 12/13/21 Range/Units 12:06 12:08 12:08 WBC 12.9 H (4.8-10.8) X10*3/uL RBC 3.84 L (4.60-5.80) X10*6/uL Hgb 11.4 L (14.0-18.0) g/dl Hct 34.1 L (42.0-52.0) % MCV 88.8 (80.0-98.0) fL MCH 29.7 (27.0-33.0) pg MCHC 33.4 (31.0-36.0) g/dl RDW 13.7 (11.0-16.0) % Plt Count 280 (160-400) X10*3/uL MPV 9.6 (9.4-12.4) fL Immature Gran % (Auto) 0.4 (0.0-0.4) % Neut % (Auto) 78.7 H (45-73) % Lymph % (Auto) 13.3 L (20-40) % [place] % (Auto) 5.7 (2-11) % Eos % (Auto) 1.6 (0-4) % Baso % (Auto) 0.3 (0-2) % Lymph # (Auto) 1.7 (1.2-4.9) X10*3/uL [place] # (Auto) 0.7 (0.1-1.2) X10*3/uL Eos # (Auto) 0.2 (0.0-0.4) X10*3/uL Baso # (Auto) 0.0 (0.0-0.2) X10*3/uL Abs Immat Gran (auto) 0.05 H (0.00-0.03) X10*3/uL Absolute Neuts (auto) 10.1 H (2.0-8.3) x10*3/uL Absolute Nucleated RBC 0.000 (0.0-0.012) X10*3/uL Nucleated RBC % (auto) 0.0 (0.0-0.2) /100WBC Sodium 140 (135-145) mmol/L Potassium 3.9 (3.3-5.1) mmol/L Chloride 102 (96-108) mmol/L Carbon Dioxide 29 (22-29) mmol/L Anion Gap 13 (12-20) BUN 14 (9-16) mg/dL Creatinine 0.96 (0.5-1.4) mg/dL Estim Creat Clear Calc 79.1 Estimated GFR > 60 Random Glucose 157 H (60-115) mg/dL Calcium 9.2 (8.4-10.2) mg/dL Total Bilirubin 0.5 (0.0-1.0) mg/dL Direct Bilirubin 0.2 (0.0-0.5) mg/dL AST 12 (5-37) U/L ALT 10 (0-40) U/L Alkaline Phosphatase 91 (39-117) U/L Total Protein 7.5 (6.5-8.0) g/dL Albumin 4.6 (3.5-5.0) g/dL Lipase 14 (8-78) U/L Urine Color YELLOW Urine Appearance CLEAR Urine pH 8.0 (5.0-8.0) Ur Specific [place] 1.015 (1.005-1.025) Urine Protein 1+ H (NEG-TRACE) MG/DL Urine Glucose (UA) 100 H (NEG) MG/DL Urine Ketones NEG (NEG) MG/DL Urine Blood NEG (NEG) Urine Nitrite NEG (NEG) Ur Leukocyte Esterase NEG (NEG) Urine RBC 0-2 (0) /HPF Urine WBC 0-2 (0-4) /HPF Ur Squamous Epith Cells TRACE /LPF Urine Bacteria NONE /LPF Critical Care Time Critical Care Time Critical Care Time: No Discharge Plan Discharge Clinical Impression: Gastritis Patient Disposition: Home, Self-Care Instructions: Gastritis (ED), Diet for Stomach Ulcers and Gastritis (ED) Additional Instructions: Your lab workup today was unremarkable. Your pain is most likely due to gastritis which is and irritation and inflammation of your stomach lining OR an ulcer in your stomach or small intestine. Start taking the prescribed medication as directed for this. Stick to a bland diet. Avoid foods high in acid, avoid alcohol and NSAID medications like Aleve, Motrin, Advil or ibuprofen. Follow up with your doctor as needed. Follow up with GI doctor if you symptoms persist despite dietary modifications and medication. If you develop new or worsening symptoms call 911 or come back to the ER for further evaluation. Prescriptions: New pantoprazole [Protonix] 40 mg tablet,delayed release (DR/EC) 40 mg PO DAILY Qty: 30 0RF No Action oxycodone-acetaminophen [Percocet] 5-325 mg tablet 1 tab PO Q6H PRN (Reason: pain) Qty: 14 0RF cyclobenzaprine 10 mg tablet 10 mg PO TID PRN (Reason: muscle spasm) Qty: 10 0RF lidocaine [Lidoderm] 5 % adhesive patch,medicated 1 patch topical DAILY Qty: 15 0RF Rx Instructions: leave on most painful area for up to 12 hrs tramadol 50 mg tablet 50 mg PO Q8H PRN (Reason: pain) Qty: 10 0RF oxycodone-acetaminophen [Percocet] 5-325 mg tablet 1 tab PO TID PRN (Reason: pain) Qty: 9 0RF naproxen 500 mg tablet 500 mg PO BID PRN (Reason: pain) Qty: 20 0RF ketorolac 10 mg tablet 10 mg PO Q6H 5 Days Qty: 20 0RF cyclobenzaprine 5 mg tablet 5 mg PO TID 5 Days Qty: 15 0RF celecoxib [Celebrex] 200 mg capsule 200 mg PO BID 30 Days Qty: 60 0RF Referrals: Ric Barillas [Physician] - (epigastric pain)
[2021-12-13] MEDS: Lidocaine HCl Viscous 2 % 15 ML SOLUTION MUCOUS MEM (15:58)
[2021-12-13] MEDS: PHENobarb/Hyoscy/Atropine/Scop 10 ML ELIXIR PO (15:58)
[2021-12-13] MEDS: Magnesium Hydrox/Alum Hydrox 30 ML ORAL.SUSP PO (15:58)
[2021-12-13 15:59] VITALS: BP 169/101; PULSE 89; RESP 20; TEMP 37.3; O2SAT 100
== END 2021-12-13 17:03 | disposition home or self-care (01) ==
PROVIDERS: Emergency Provider Emergency Medicine Emergency Medical Services; PCP Internal Medicine
DX: K29.70 Gastritis, unspecified, without bleeding (principal); E11.9 Type 2 diabetes mellitus without complications; I10 Essential (primary) hypertension
CPT/HCPCS: 36415; 80048; 80076; 81001; 83690; 85025; 99283; 99284